=== PATIENT | female | born 1960 | race Hispanic/Latino ===

== ENCOUNTER 2023-11-14 00:57 | Emergency (ER) | payer OTHER ==
[~2023-11-14] VITALS: Ht 152.4 cm; Wt 77.1 kg
[2023-11-14 01:24] LABS: BASOPHILS # (AUTO) 0.02 K/uL (0.00-0.20); BASOPHILS % (AUTO) 0.2 % (0.0-5.0); EOSINOPHILS # (AUTO) 0.05 K/uL (0.00-0.70); EOSINOPHILS % (AUTO) 0.5 % (0.0-8.0); HEMATOCRIT 43.7 % (36-48); IMMATURE GRANULOCYTE ABSOLUTE 0.02 K/uL (0-1); LYMPHOCYTES # (AUTO) 5.7 K/uL (1.0-4.8); LYMPHOCYTES % (AUTO) 59.7 % (21.0-51.0); MEAN CORPUSCULAR HGB CONC 33.9 g/dL (32.0-36.0); MEAN CORPUSCULAR VOLUME 85.7 fL (79-99); MONOCYTES # (AUTO) 0.4 K/uL (0.1-1.0); MONOCYTES % (AUTO) 4.4 % (3.0-13.0); NEUTROPHILS # (AUTO) 3.3 K/uL (1.8-7.7); PLATELET COUNT (AUTO) 305 K/uL (130-400); RED CELL DISTRIBUTION WIDTH 12.9 % (11.0-15.5); WHITE BLOOD COUNT (AUTO) 9.6 K/uL (4.8-10.8)
[2023-11-14] MEDS: DiphenhydrAMINE HCL 50 MG/ML VIAL ONE (01:24)
[2023-11-14] MEDS: SOLU-MEDROL 125MG VIAL ONE (01:25)
[2023-11-14] MEDS: LACTATED RINGERS 1000ML 1,000 ML IV ONE (01:29)
[2023-11-14] MEDS: FAMOTIDINE 20MG VIAL IV ONE (01:29)
[2023-11-14] MEDS: PANTOPRAZOLE 40 MG/VIAL IVP ONE (01:29)
[2023-11-14] MEDS: PREDNISOLONE 15 MG/5 ML SOLN PO SCH (01:29)
[2023-11-14 01:39] LABS: INR <= 0.93 (0.85-1.15); PROTHROMBIN TIME 10.8 SEC (9.6-11.6)
[2023-11-14 01:40] LABS: PARTIAL THROMBOPLASTIN TIME 24.5 SEC (26.3-35.5)
[2023-11-14 01:48] LABS: ALBUMIN 3.3 g/dL (3.5-5.0); BILIRUBIN,TOTAL 0.4 mg/dL (0.2-1.0); CREATININE 1.1 mg/dL (0.5-1.0); POTASSIUM 3.7 mmol/L (3.5-5.1); TOTAL PROTEIN, SERUM 8.2 g/dL (6.0-8.3)
[2023-11-14 02:01] LABS: B-TYPE NATRIURETIC PEPTIDE 6 pg/mL (0-100)
[2023-11-14] MEDS ORDERED: IOHEXOL-350 75 ML VIAL IV ONE (03:52)
[2023-11-14] MEDS: 0.9%NACL 1000ML 1,000 ML IV ONE (04:37)
[2023-11-14 05:04] VITALS: RESP 16; O2SAT 99
[2023-11-14] MEDS: CLONIDINE HCL 0.1 MG TABLET ONE (05:15)
[2023-11-14 05:17] VITALS: BP 188/80; PULSE 67
[2023-11-14] MEDS: CLONIDINE HCL 0.1 MG TABLET PO ONE (05:17)
[2023-11-14] MEDS ORDERED: PRED10TA23 PO (06:05)
[2023-11-14] MEDS ORDERED: PANT40TA55 PO (06:05)
== END 2023-11-14 06:15 | disposition home or self-care (01) ==
LOC: EDH 00:57
DX: T78.40XA Allergy, unspecified, initial encounter (principal); K29.70 Gastritis, unspecified, without bleeding; E86.0 Dehydration; E11.9 Type 2 diabetes mellitus without complications; I10 Essential (primary) hypertension
CPT/HCPCS: 99285; 96374; 71275; 71045; 96361; 96375; 82550; 83735; 84484 ×2; 80053; 83880; 85025; 85610; 85730; 87040 ×2; 83605 ×2; 36415; 93005; J7120; J1200; J3490; J2919; C9113; Q9967